=== PATIENT | female | born 1950 | race Caucasian/White ===

== ENCOUNTER 2017-08-30 20:48 | Inpatient (IN) | payer MEDICARE, OTHER ==
[~2017-08-30] VITALS: Ht 165.1 cm; Wt 108.9 kg
[2017-08-30] MEDS ORDERED: THIO50TA PO (20:51)
[2017-08-30] MEDS ORDERED: LORAZEPAM 2 MG/1 ML VIAL IM ONE (21:00)
[2017-08-30] MEDS ORDERED: diphenhydrAMINE 50 MG/1 ML VIAL IM ONE (21:00)
[2017-08-30] MEDS ORDERED: HALOPERIDOL LACTATE 5 MG/1 ML VIAL IM ONE (21:00)
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
[2017-08-30] MEDS ORDERED: HALOPERIDOL LACTATE 5 MG/1 ML VIAL ONE (21:10)
[2017-08-30] MEDS ORDERED: LORAZEPAM 2 MG/1 ML VIAL ONE (21:10)
[2017-08-30] MEDS ORDERED: diphenhydrAMINE 50 MG/1 ML VIAL ONE (21:10)
--- NOTE | 2017-08-30 21:10 | NUR ---
Patient is Medically Cleared per ERMD.
--- NOTE | 2017-08-30 21:30 | NUR ---
Patient to remain in ER at this time, unable to receive bed assignment from GPS. Nursing Soap Slabber notified.
--- NOTE | 2017-08-30 22:01 | NUR ---
Patient to remain in ER at this time, unable to receive bed assignment from GPS. Nursing Automation Operator notified.
--- NOTE | 2017-08-30 22:36 | NUR ---
Patient to remain in ER at this time, unable to receive bed assignment from GPS. Nursing Museum Docent notified. Patient remains agitated but cooperative, placed in Aylin-Chair with table to eat food which she requested, no signs of distress noted.
--- NOTE | 2017-08-30 22:56 | NUR ---
Pt. admitted to GPS, under care of Dr. Hoskins Belongs List completed
[2017-08-30] MEDS ORDERED: CLONAZEPAM 0.5 MG TABLET PO SCH (23:30)
[2017-08-30] MEDS ORDERED: MAG HYDROX/AL HYDROX/SIMETH 30 ML LIQUID UDC PO PRN (23:30)
[2017-08-30] MEDS ORDERED: MAGNESIUM HYDROXIDE 30 ML LIQUID UDC PO PRN (23:30)
--- NOTE | 2017-08-30 23:45 | NUR ---
AT APPROX 2315, ADMITTED 76 YEAR OLD FEMALE TO [facility] ON A 5150 FOR GD. PATIENT WAS TRANSPORTED VIA [facility] CHAIR. PER HOLD, SON HAVE NOT HEARD FROM HER IN A WEEK. HE WENT TO HER HOUSE AND FOUND HER SCREAMING. THE PATIENT COULD NOT OPEN THE DOOR FOR HER SON AND THE POLICE WERE CALLED. PATIENT WAS TAKEN TO [facility] ER FOR A PSYCH EVALUATION ON 08/28/17. PATIENT WAS CLEARED AND PUT ON HOLD AT THIS HOSPITAL. HOLD STARTED ON 08/28/17 AT 1115 AND WILL END ON 08/31/17 AT 1115. PATIENT WAS GIVEN BENADRYL 50MG IM, ATIVAN 2MG IM AND HALDOL 5MG IM AT [facility] ER AT APPROX 2100. PATIENT WAS UNABLE TO SIGN THE ADMISSION PAPERS OF PROVIDE ANY HISTORY DUE TO PT IS CONFUSED. PATIENT WAS PUT IN HER BED AND SHE IS NOW ASLEEP. WILL CONTINUE TO MONITOR.
[2017-08-31 02:43] VITALS: BP 144/99
--- NOTE | 2017-08-31 06:49 | NUR ---
PATIENT SLEPT FOR APPROX 6.15 HRS THROUGH THE NIGHT. REFUSED BLOOD DRAWN THIS AM. WILL CONTINUE TO MONITOR.
[2017-08-31 07:30] VITALS: BP 152/91
[2017-08-31 08:30] LABS: THYROID STIMULATING HORMONE 4.999 mIU/mL (0.358-3.740)
[2017-08-31] MEDS: QUETIAPINE FUMARATE 25 MG TABLET PO SCH ×2 (16:17→21:10)
[2017-08-31 16:33] VITALS: BP 110/76
--- NOTE | 2017-08-31 16:41 | NUR ---
GPS: Nursing Notes: Thought Disorder: patient is awake and responding to her name, impaired judgment, disoriented, responding to internal stimuli by talking and mumbling to self, episodes of shouting and screaming in the TV room, disruptive by screaming while other patients are watching the TV, redirected and reoriented, but continue to be talking and mumbling to self, unable to formulate a plan for self care, unkempt appearance, resistant with nursing care, ambulatory with FWW, continue with treatment plan.
--- NOTE | 2017-08-31 22:00 | NUR ---
received to care, yelling and screaming and running in the hallway, uttering racial slurs, difficult to redirect. pt was given her routine dose of seroquel, and she calmed down, slightly, sitting in the chris chair, in the hallway. as of 2199, she remains agitated, talking intermittently. will continue to monitor closely.
[2017-08-31] MEDS: TEMAZEPAM 7.5 MG CAPSULE PO PRN (22:45)
--- NOTE | 2017-08-31 22:45 | NUR ---
remains agitated and restless. talking to self. PRN restoril given for insomnia.
--- NOTE | 2017-08-31 23:50 | NUR ---
remains restless. PRN klonopin was given, for anxiety.
--- NOTE | 2017-09-01 00:30 | NUR ---
assisted to bed at 0015. as of 0030, she appears to be asleep. no distress noted.
--- NOTE | 2017-09-01 06:00 | NUR ---
slept 5.5 hours. assisted with AM care, and shower. is calm and cooperative. will continue to monitor closely.
[2017-09-01 07:30] VITALS: BP 136/83
[2017-09-01] MEDS: CLONAZEPAM 0.5 MG TABLET PO PRN (07:35)
[2017-09-01] MEDS: QUETIAPINE FUMARATE 25 MG TABLET PO SCH ×2 (08:11→16:21)
--- NOTE | 2017-09-01 16:23 | NUR ---
GPS: Nursing Notes: Thought Disorder: Patient is awake and responding to her name, impaired judgment, episodes of talking incoherently, responding to internal stimuli by talking and mumbling to unseen things, when asked who she is talking to, stated "I don't know... I guess... I am talking to Cinthia..", disorganized, resistant with nursing care, redirected and reoriented during shift, unable to formulate a plan for self care, continue with treatment plan.
[2017-09-01 16:59] VITALS: BP 114/69
[2017-09-01] MEDS: TEMAZEPAM 7.5 MG CAPSULE PO PRN (21:53)
[2017-09-02 07:30] VITALS: BP 114/74
[2017-09-02 07:31] LABS: BASOPHILS % (AUTO) 0.7 % (0.0-2.0); EOSINOPHILS # (AUTO) 0.2 K/uL (0.0-0.7); HEMATOCRIT 36.4 % (37-47); HEMOGLOBIN 12.6 G/DL (12.0-16.0); LYMPHOCYTES # (AUTO) 2.1 K/UL (0.8-4.8); LYMPHOCYTES % (AUTO) 34.4 % (20.5-51.5); MEAN CORPUSCULAR HEMOGLOBIN 33.3 UUG (27.0-31.0); MEAN CORPUSCULAR HGB CONC 35 g/dL (32.0-37.0); MEAN CORPUSCULAR VOLUME 96.3 FL (81.0-99.0); MONOCYTES # (AUTO) 0.4 K/UL (0.1-1.30); NEUTROPHILS # (AUTO) 3.3 K/UL (1.8-8.9); NEUTROPHILS % (AUTO) 54.9 % (38.5-71.5); PLATELET COUNT (AUTO) 98 K/UL (150-450); RED BLOOD CELL COUNT(AUTO) 3.78 MIL/UL (4.2-5.4)
[2017-09-02 07:56] LABS: BILIRUBIN,TOTAL 0.4 mg/dL (0.2-1.0); PHOSPHOROUS 3.7 mg/dL (2.5-4.9); POTASSIUM 4.4 mmol/L (3.5-5.1); TOTAL PROTEIN, SERUM 6.6 g/dL (6.4-8.2)
[2017-09-02 08:59] LABS: THYROID STIMULATING HORMONE 3.267 mIU/mL (0.358-3.740)
[2017-09-02] MEDS: CLONAZEPAM 0.5 MG TABLET PO PRN ×2 (09:51→13:53)
--- NOTE | 2017-09-02 09:55 | NUR ---
PATIENT BECAME AGITATED IN DAY ROOM FOR NO REASON AND BEGAN SCREAMING , CURSING AND TOUCH RECREATION THERAPY SHE PUSHED HER PER STAFFPT REFUSED TO SIT IN [place] CHAIR SECURITY CALLED AND PT FINALLY GOT INTO CHAIR WITH 2 PEOPLE ASSIST AND TOOK AM MEDS PLUS KLONOPIN.5 MG STILL RESPONDING TO INTERNAL STIMULI LESS ABUSIVE CONTINUE TO MONITOR PT S MOOD AND SAFETY.
[2017-09-02] MEDS: QUETIAPINE FUMARATE 25 MG TABLET PO SCH (09:56)
[2017-09-02 11:27] LABS: BAND % (MANUAL) 2 % (0-10); EOSINOPHILS % (MANUAL) 2 % (0-8); LYMPHOCYTES % (MANUAL) 38 % (20-40); MONOCYTES % (MANUAL) 7 % (2-10); NEUTROPHILS % (MANUAL) 51 % (42-75)
[2017-09-02] MEDS ORDERED: diphenhydrAMINE 50 MG/1 ML VIAL IM ONE (14:45)
[2017-09-02] MEDS ORDERED: LORAZEPAM 2 MG/1 ML VIAL IM ONE (14:45)
[2017-09-02] MEDS ORDERED: HALOPERIDOL LACTATE 5 MG/1 ML VIAL IM ONE (14:45)
[2017-09-02 15:07] VITALS: BP 102/63
--- NOTE | 2017-09-02 16:33 | NUR ---
Initial Discharge Instructions: Pt resides in [address] alone [[address] [place] [address]]. Spoke with pt's son, Antione Macias who would like pt to return home, but is open to SNF placement if necessary. SW will speak with pt,family,and MD regarding appropriate discharge plans. SW will form a safe and proper discharge.
[2017-09-02] MEDS ORDERED: QUETIAPINE FUMARATE 25 MG TABLET PO SCH (17:00)
[2017-09-02] MEDS: QUETIAPINE FUMARATE 100 MG TABLET PO SCH (17:00)
[2017-09-02 20:36] VITALS: BP 114/84
--- NOTE | 2017-09-03 06:53 | NUR ---
PATIENT SLEPT FOR APPROX 9.30 HRS THROUGH THE NIGHT. HE WOKE UP AT APPROX 0300 AND REQUESTED SOMETHING TO DRINK THEN SHE WENT BACK TO BED. SHE HAD A SHOWER THIS MORNING.
[2017-09-03 07:30] VITALS: BP 128/88
[2017-09-03] MEDS: QUETIAPINE FUMARATE 100 MG TABLET PO SCH (09:17)
[2017-09-03] MEDS: CLONAZEPAM 0.5 MG TABLET PO PRN (13:50)
[2017-09-03 16:08] VITALS: BP 110/57
[2017-09-03] MEDS: QUETIAPINE FUMARATE 200 MG TABLET PO SCH (16:35)
[2017-09-03] MEDS ORDERED: QUETIAPINE FUMARATE 100 MG TABLET PO SCH (17:00)
[2017-09-03 20:33] VITALS: BP 117/86
[2017-09-04 07:30] VITALS: BP 106/66
[2017-09-04] MEDS: QUETIAPINE FUMARATE 200 MG TABLET PO SCH ×2 (09:08→16:37)
--- NOTE | 2017-09-04 09:50 | NUR ---
PT RECEIVED AWAKE AOX2. PT SPEECH IS LESS RAPID, REMAINS WITH FLIGHT OF IDEAS. PT REFUSED AM MEDICATION AT FIRST BUT LATER WAS COMPLIANT WITH SEROQUEL. APPETITE GOOD. NO ACUTE DISTRESS NOTED.
[2017-09-04] MEDS: CLONAZEPAM 0.5 MG TABLET PO PRN (13:19)
--- NOTE | 2017-09-04 13:20 | NUR ---
PT OBSERVED INTRUSIVE AND LABILE, ALSO HYPER AGITATED AND FIXATED ON STAFF, PT REQUIRED REDIRECTION. GIVEN KLONOPIN PRN ORDERED.
--- NOTE | 2017-09-04 16:44 | NUR ---
IN DAY ROOM WATCHING TV. PT IS LESS AGITATED AT THIS TIME, BUT REMAINS LABILE AND TIMES. OTHERWISE NO AGGRESSIVE OR COMBATIVE BEHAVIOR NOTED.
[2017-09-04 20:19] VITALS: BP 107/78
[2017-09-05 07:30] VITALS: BP 131/80
[2017-09-05 08:22] LABS: BASOPHILS % (AUTO) 0.7 % (0.0-2.0); EOSINOPHILS # (AUTO) 0.3 K/uL (0.0-0.7); EOSINOPHILS % (AUTO) 5.8 % (0.0-7.0); HEMATOCRIT 37.2 % (31.2-41.9); HEMOGLOBIN 12.6 g/dL (10.9-14.3); LYMPHOCYTES # (AUTO) 1.5 K/uL (20.0-40.0); LYMPHOCYTES % (AUTO) 31.8 % (20.5-51.5); MEAN CORPUSCULAR HEMOGLOBIN 32.9 uug (24.7-32.8); MEAN CORPUSCULAR HGB CONC 34 g/dL (32.3-35.6); MONOCYTES # (AUTO) 0.4 K/uL (2.0-10.0); MONOCYTES % (AUTO) 7.7 % (0.0-11.0); NEUTROPHILS # (AUTO) 2.6 K/uL (1.8-8.9); PLATELET COUNT (AUTO) 96 K/uL (179-408); RED BLOOD CELL COUNT(AUTO) 3.83 MIL/uL (3.63-4.92); WHITE BLOOD COUNT (AUTO) 4.8 K/uL (3.8-11.8)
[2017-09-05 08:35] LABS: BILIRUBIN,TOTAL 0.4 mg/dL (0.2-1.0); CREATININE 0.9 mg/dL (0.6-1.3); MAGNESIUM 1.9 mg/dL (1.8-2.4); PHOSPHOROUS 3.6 mg/dL (2.5-4.9); POTASSIUM 4.2 mmol/L (3.5-5.1); TOTAL PROTEIN, SERUM 6.5 g/dL (6.4-8.2)
[2017-09-05 09:26] LABS: EOSINOPHILS % (MANUAL) 2 % (0-8); LYMPHOCYTES % (MANUAL) 30 % (20-40); MONOCYTES % (MANUAL) 4 % (2-10); NEUTROPHILS % (MANUAL) 64 % (42-75)
[2017-09-05] MEDS: QUETIAPINE FUMARATE 200 MG TABLET PO SCH ×2 (09:34→18:08)
[2017-09-05] MEDS: CLONAZEPAM 0.5 MG TABLET PO PRN (09:34)
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
[2017-09-05 21:00] VITALS: BP 120/80
[2017-09-06 07:30] VITALS: BP 114/63
[2017-09-06] MEDS: QUETIAPINE FUMARATE 200 MG TABLET PO SCH ×2 (08:16→16:49)
[2017-09-06 15:26] VITALS: BP 97/77
[2017-09-06 20:08] VITALS: BP 115/84
--- NOTE | 2017-09-07 06:43 | NUR ---
GPS: REMAIN UNCOOPERATIVE WITH CARE. CONFUSED TALKING TO HER SELF.LIKE TO SIT IN HALLWAY. SLEPT 6 HRS THROUGH THE NIGHT. NO PRN GIVEN. CONTINUE PLAN OF CARE.
[2017-09-07 07:30] VITALS: BP 101/68
[2017-09-07] MEDS: QUETIAPINE FUMARATE 200 MG TABLET PO SCH ×2 (08:23→16:18)
--- NOTE | 2017-09-07 09:57 | NUR ---
GPS: Nursing Notes: Thought Disorder: Patient is awake and responding to her name, responding to internal stimuli by talking and mumbling to herself, episodes of shouting incoherently, verbal abusive toward roommate, stating the "N..." word to her [place] roommate several times, "This is a democracy... We need to stay together....", "You are taking over..", shouting at charge nurse, impaired judgment, redirected and reoriented during shift, because of her racial statements, staff moved her roommate to another room, patient is unable to formulate a plan for self care, internally preoccupied, continue with treatment plan.
[2017-09-07 15:31] VITALS: BP 119/63
[2017-09-07 20:00] VITALS: BP 120/64
[2017-09-07] MEDS: ACETAMINOPHEN 325 MG TABLET PO PRN (23:10)
--- NOTE | 2017-09-08 00:10 | NUR ---
Pt c/o 7/10 pounding headache. Tylenol 650mg administered with good effect.
[2017-09-08 07:30] VITALS: BP 113/62
[2017-09-08] MEDS: QUETIAPINE FUMARATE 200 MG TABLET PO SCH ×2 (08:06→16:50)
[2017-09-08] MEDS: ACETAMINOPHEN 325 MG TABLET PO PRN (11:03)
[2017-09-08 16:53] VITALS: BP 116/73
[2017-09-08 20:15] VITALS: BP 122/64
[2017-09-09] MEDS: ACETAMINOPHEN 325 MG TABLET PO PRN (02:10)
--- NOTE | 2017-09-09 02:25 | NUR ---
RECEIVED PATIENT IN THE DAY ROOM WATCHING TV. SHE WAS CALM AND COOPERATIVE. A/O X 3. AT APPROX O215 PATIENT COMPLIANT OF A HEADACHE. TYLENOL 650MG PO PRN FOR PAIN WAS GIVEN. WILL MONITOR.
--- NOTE | 2017-09-09 03:38 | NUR ---
TYLENOL 650MG PO PRN FOR HEADACHES WAS EFFECTIVE. PT IS IN HER BED RESTING COMFORTABLE.
[2017-09-09 08:04] VITALS: BP 114/84
[2017-09-09] MEDS: QUETIAPINE FUMARATE 200 MG TABLET PO SCH ×2 (10:21→17:00)
[2017-09-09 15:52] VITALS: BP 136/95
--- NOTE | 2017-09-09 17:00 | NUR ---
PATIENT WITHDRAWN AND SECLUSIVE TO HER ROOM, DISORGANIZED IN THOUGHT PROCESS, RESPONDING HEAVILY TO INTERNAL STIMULI, TALKING LOUD TO UNSEEN OTHERS, YELLING IN THE HALLWAY, REFUSED PM MEDICATION, ATE 100% OF EACH MEALS. WILL CONTINUE TO MONITOR FOR SAFETY AND NEEDS.
[2017-09-09 20:30] VITALS: BP 132/88
--- NOTE | 2017-09-09 22:40 | NUR ---
PATIENT PRESENTS IN HER ROOM WITH VISUAL AND AUDITORY HALLUCINATIONS E/B TALKING AND ARGUING AT THE WALL IN HER ROOM. FLIGHT OF IDEAS. CLONAZEPAM 0.5MG PO PRN WAS OFFERED; HOWEVER, PT REFUSED. PATIENT WAS REDIRECTED. WILL CONTINUE TO MONITOR.
[2017-09-10 07:30] VITALS: BP 127/78
[2017-09-10] MEDS: ACETAMINOPHEN 325 MG TABLET PO PRN (09:12)
[2017-09-10] MEDS: QUETIAPINE FUMARATE 200 MG TABLET PO SCH ×2 (09:22→20:16)
[2017-09-10 15:00] VITALS: BP 116/69
[2017-09-10 20:00] LABS: *BILIRUBIN,URIN NEGATIVE (NEGATIVE); *BLOOD, URINE Trace-intact (NEGATIVE); *CLARITY,URINE CLOUDY (CLEAR); *COLOR,URINE YELLOW (YELLOW); *KETONES,URINE NEGATIVE (NEGATIVE); *PROTEIN,URINE NEGATIVE (NEGATIVE); *UROBILINOGEN,URINE 0.2 E.U./dl (NORMAL); LEUKOCYTE ESTERASE ,URINE 2+ (NEGATIVE); NITRITE, URINE POSITIVE (NEGATIVE); UGLUCOSE NEGATIVE (NEGATIVE)
[2017-09-10 20:53] VITALS: BP 120/64
[2017-09-10 20:55] LABS: BACTERIA,URINE MANY /HPF (NONE SEEN); MUCUS,URINE MODERATE /LPF (0-FEW); SQUAMOUS EPITHELIAL CELL,UR MODERATE /HPF (NONE SEEN); WBC,URINE 80-100 /HPF (0-3)
[2017-09-11 07:02] LABS: BASOPHILS % (AUTO) 0.8 % (0.0-2.0); EOSINOPHILS # (AUTO) 0.2 K/uL (0.0-0.7); EOSINOPHILS % (AUTO) 3.9 % (0.0-7.0); HEMATOCRIT 35.3 % (31.2-41.9); HEMOGLOBIN 11.9 g/dL (10.9-14.3); LYMPHOCYTES # (AUTO) 1.6 K/uL (20.0-40.0); LYMPHOCYTES % (AUTO) 31.9 % (20.5-51.5); MEAN CORPUSCULAR HEMOGLOBIN 33.1 uug (24.7-32.8); MEAN CORPUSCULAR HGB CONC 34 g/dL (32.3-35.6); MEAN CORPUSCULAR VOLUME 98.3 fL (75.5-95.3); MONOCYTES # (AUTO) 0.3 K/uL (2.0-10.0); MONOCYTES % (AUTO) 6.4 % (0.0-11.0); NEUTROPHILS # (AUTO) 2.9 K/uL (1.8-8.9); PLATELET COUNT (AUTO) 115 K/uL (179-408); WHITE BLOOD COUNT (AUTO) 5.1 K/uL (3.8-11.8)
[2017-09-11 07:16] LABS: BILIRUBIN,TOTAL 0.3 mg/dL (0.2-1.0); CREATININE 0.8 mg/dL (0.6-1.3); MAGNESIUM 1.8 mg/dL (1.8-2.4); PHOSPHOROUS 3.3 mg/dL (2.5-4.9); POTASSIUM 3.5 mmol/L (3.5-5.1); TOTAL PROTEIN, SERUM 6.5 g/dL (6.4-8.2)
[2017-09-11 07:30] VITALS: BP 128/86
[2017-09-11] MEDS: QUETIAPINE FUMARATE 200 MG TABLET PO SCH ×2 (08:55→20:02)
[2017-09-11] MEDS: ACETAMINOPHEN 325 MG TABLET PO PRN ×2 (09:02→15:34)
[2017-09-11] MEDS: SULFAMETH/TRIMETH 800/160 MG TABLET PO SCH ×2 (10:46→20:02)
--- NOTE | 2017-09-11 15:18 | NUR ---
Thursday DC Note: Patient will be discharged to [facility] [[address], [place] [address]; ] via private transportation at 12:00pm. Spoke with Chantal at the facility who states they will provide transportation and are ready to accept patient. Spoke with patient's son, Antione Macias ([phone]) and patient's sister, Shannon Ellis ([phone]) who are both aware and agreeable with discharge plans. Patient is aware and agreeable with discharge plans. Patient will follow-up at the facility with Dr. Reece (Director Of Pediatric Rehabilitation) and Dr. Hawkins (Psychiatrist).
[2017-09-11 15:26] VITALS: BP 138/81
[2017-09-11 20:08] VITALS: BP 126/83
--- NOTE | 2017-09-12 06:54 | NUR ---
GPS: REMAIN CALM AND COOPERATIVE. SLEPT 8 HRS THROUGH THE NIGHT. PLESANT UPON APPROACH. NO AGITATION NOTED.CONTINUE PLAN OF CARE.
[2017-09-12 07:30] VITALS: BP 124/63
[2017-09-12] MEDS: QUETIAPINE FUMARATE 200 MG TABLET PO SCH ×2 (08:32→20:12)
[2017-09-12] MEDS: SULFAMETH/TRIMETH 800/160 MG TABLET PO SCH ×2 (08:37→20:16)
--- NOTE | 2017-09-12 08:38 | NUR ---
PT REFUSED BACTRIM. EXPLAINED RISK AND BENEFITS, OFFERED X3, PT STRONGLY REFUSED MED. STATED "NO I AM NOT TAKING IT, I HAVE BEEN REFUSING IT AND MY DR DID NOT ORDER IT". EDUCATED PT ABOUT MEDICATION, PT STILL REFUSED.
--- NOTE | 2017-09-12 10:28 | NUR ---
CALLED [facility] AND SPOKE TO VARIETY PERFORMER OWEN. STATED THEY WILL ACCEPT PT ON THURSDAY.
[2017-09-12 16:45] VITALS: BP 125/81
[2017-09-12 20:38] VITALS: BP 124/77
[2017-09-13] MEDS: ACETAMINOPHEN 325 MG TABLET PO PRN (06:03)
--- NOTE | 2017-09-13 06:06 | NUR ---
GPS: PATIENT C/O HEADACHE 4/10 PAIN. TYLENOL 650 MG PO GIVEN.
--- NOTE | 2017-09-13 06:20 | NUR ---
GPS: REMAIN CALM AND COOPERATIVE WITH MEDICATION AND CARE. SLEPT 06:30 HRS THROUGH THE NIGHT. NO AGITATION NOTED THIS TIME. CONTINUE PLAN OF CARE.CONTINUE PLAN OF CARE.
[2017-09-13 07:30] VITALS: BP 135/87
[2017-09-13] MEDS: SULFAMETH/TRIMETH 800/160 MG TABLET PO SCH ×2 (08:46→20:11)
[2017-09-13] MEDS: QUETIAPINE FUMARATE 200 MG TABLET PO SCH ×2 (08:46→20:11)
[2017-09-13 16:40] VITALS: BP 146/97
[2017-09-13 20:19] VITALS: BP 135/88
--- NOTE | 2017-09-13 20:42 | NUR ---
PATIENT RECEIVED IN ACTIVIES ROOM INTERACTING WITH PEERS AND STAFF. PATIENT CALM AND COOPERATIVE ABLE TO MAKE NEEDS KNOWN. NO AGGRESSIVE OR COMBATIVE BEHAVIOR NOTED WILL CONTINUE TO MONITOR AND REDIRECT NEEDED. PATIENT COMPLAINT WITH MEDICATION. NO BEHAVIORAL ISSUES NOTED WILL CONTINUE TO MONITOR AND REDIRECT NEEDED.
[2017-09-14 07:30] VITALS: BP 125/66
[2017-09-14] MEDS: QUETIAPINE FUMARATE 200 MG TABLET PO SCH (08:40)
[2017-09-14] MEDS: SULFAMETH/TRIMETH 800/160 MG TABLET PO SCH (08:40)
[2017-09-14] MEDS: ACETAMINOPHEN 325 MG TABLET PO PRN (08:40)
--- NOTE | 2017-09-14 08:47 | NUR ---
Updated DC Note: Patient will be discharged to [facility] [[address], [place] [address]; ] via private transportation today at 12:00pm. Spoke with Chantal at the facility who states they will provide transportation and are ready to accept patient. Spoke with patient's son, Antione Macias ([phone]) and patient's sister, Shannon Ellis ([phone]) who are both aware and agreeable with discharge plans. Patient is aware and agreeable with discharge plans. Patient will follow-up at the facility with Dr. Reece (Business Dean) and Dr. Hawkins (Psychiatrist)
--- NOTE | 2017-09-14 13:13 | NUR ---
GPS: Nursing Notes: Discharge Notes: Patient is awake and responding to her name, cooperative with nursing care and compliant with her medications, denies any SI/HI, denies any AH/VH, denies any pain or discomfort, denies any SOB, discharge to [facility] at [address], [place] [address] , report given to nurse Anette FOREMAN, picked by facility's concrete mixing truck driver, Carol, took all her belongings with her, patient's son, Antione Macias and sister, Shannon Ellis were notify by S.W., Dr. Hawkins (psychiatrist) and Dr. Reece (genetic engineer) will continue with aftercare at the facility.
== END 2017-09-14 13:15 | DRG 885 ==
LOC: ER 20:49 → GPS 23:02
PROVIDERS: ADMIT Psychiatry & Neurology Psychiatry; ATTEND Nurse Practitioner Acute Care
DX: F23 Brief psychotic disorder (principal); D69.6 Thrombocytopenia, unspecified; N39.0 Urinary tract infection, site not specified; Z91.14 Patient's other noncompliance with medication regimen; F31.9 Bipolar disorder, unspecified; E02 Subclinical iodine-deficiency hypothyroidism; F41.9 Anxiety disorder, unspecified; Z91.81 History of falling; E66.01 Morbid (severe) obesity due to excess calories; Z68.39 Body mass index [BMI] 39.0-39.9, adult; Z71.3 Dietary counseling and surveillance; B96.20 Unspecified Escherichia coli [E. coli] as the cause of diseases classified elsewhere; R73.9 Hyperglycemia, unspecified; G31.84 Mild cognitive impairment of uncertain or unknown etiology
CPT/HCPCS: 36415; 83735; 84100; 84443; 85025; 87077; 87086; A4663; J1200; J1630; J2060

== ENCOUNTER 2018-01-19 23:46 | Inpatient (IN) | payer MEDICARE, OTHER ==
[~2018-01-19] VITALS: Ht 165.1 cm; Wt 113.9 kg
--- NOTE | 2018-01-20 00:15 | NUR ---
Unable to complete med rec. A home medication list was not provided by previous facility, they were unable to obtain list. When asked pt will not answer or will answer incorrectly such as " they are here" MD vargas
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
[2018-01-20] MEDS ORDERED: MAGNESIUM HYDROXIDE 30 ML LIQUID UDC PO PRN (02:45)
[2018-01-20] MEDS ORDERED: MAG HYDROX/AL HYDROX/SIMETH 30 ML LIQUID UDC PO PRN (02:45)
[2018-01-20] MEDS ORDERED: TEMAZEPAM 7.5 MG CAPSULE PO PRN (02:45)
[2018-01-20 03:06] VITALS: BP 102/71
[2018-01-20 09:09] VITALS: BP 106/82
[2018-01-20] MEDS: OLANZAPINE ZYDIS 5 MG TAB.RAPDIS PO SCH (12:57)
[2018-01-20] MEDS: DIVALPROEX SPRINKLE 125 MG CAP.SPRINK PO SCH ×3 (12:57→17:46)
[2018-01-20 16:17] VITALS: BP 107/73
--- NOTE | 2018-01-20 22:00 | NUR ---
received to care, sitting in the activity room with peers, pleasant upon approach, with minimal disclosure, guarded in her responses, and appearing distracted by internal stimuli. no scheduled meds were due, and she refused all PRN medications. as of 0, she appears to be asleep, in her bed. no distress noted. will continue to monitor closely.
[2018-01-21 07:30] VITALS: BP 128/66
[2018-01-21] MEDS: CLONAZEPAM 0.5 MG TABLET PO PRN (08:44)
[2018-01-21] MEDS: ACETAMINOPHEN 325 MG TABLET PO PRN ×2 (08:45→13:47)
[2018-01-21] MEDS: DIVALPROEX SPRINKLE 125 MG CAP.SPRINK PO SCH ×3 (09:00→17:00)
[2018-01-21] MEDS: OLANZAPINE ZYDIS 5 MG TAB.RAPDIS PO SCH (09:00)
[2018-01-21] MEDS ORDERED: LORAZEPAM 2 MG/1 ML VIAL IM ONE (17:00)
[2018-01-21] MEDS ORDERED: HALOPERIDOL LACTATE 5 MG/1 ML VIAL IM ONE (17:00)
[2018-01-21] MEDS ORDERED: diphenhydrAMINE 50 MG/1 ML VIAL IM ONE (17:00)
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
--- NOTE | 2018-01-21 18:01 | NUR ---
Gps/Patient Accounting Representative- patient refusing routine pm meds. claimed she just have IM mediciations she does not want to be dope up. Reviewed meds. with patient still refusing, calmer at this time, eating dinner in her room.
[2018-01-21 20:00] VITALS: BP 129/89
--- NOTE | 2018-01-21 22:00 | NUR ---
received to care, sitting in the activity room. remains suspicious and isolative. no meds scheduled for bedtime, and she declined PRN medications. went to bed at 0. as of 2199, she appears to be asleep. no distress noted. will continue to monitor closely.
--- NOTE | 2018-01-21 22:30 | NUR ---
pt is attempting to ambulate around her room, with an unsteady gait. assisted to the chris chair, and placed at nurses station, for safety.
--- NOTE | 2018-01-21 23:00 | NUR ---
appears to be asleep. no distress noted. will continue to monitor closely.
--- NOTE | 2018-01-22 01:30 | NUR ---
assisted to the bathroom, then back to bed.
--- NOTE | 2018-01-22 02:00 | NUR ---
appears to be asleep. no distress noted.
[2018-01-22 07:30] VITALS: BP 138/83
[2018-01-22] MEDS: DIVALPROEX SPRINKLE 125 MG CAP.SPRINK PO SCH ×3 (08:36→16:58)
[2018-01-22] MEDS: OLANZAPINE ZYDIS 5 MG TAB.RAPDIS PO SCH (08:36)
--- NOTE | 2018-01-22 11:12 | NUR ---
Initial DC Plan: Patient currently lives home alone [[address] [place] [address]] and states she would like to return there upon discharge. SW will follow up with MD, patient, and patient's son Antione and sister Shannon [[phone]] to discuss most appropriate discharge plans. SW will form a safe and proper discharge.
--- NOTE | 2018-01-22 12:27 | NUR ---
Firearms Reporting: NAIMA submitted Mental Health Report to [facility] on 01/22.
[2018-01-22 16:00] VITALS: BP 122/79
--- NOTE | 2018-01-22 17:40 | NUR ---
Gps/Refrigeration Operator- Had been staying in the activity room watching TV, hesitancy in taking routine medications, needed prompting from time to time.
[2018-01-22 21:11] VITALS: BP 117/67
--- NOTE | 2018-01-22 22:00 | NUR ---
received to care, sitting in the hallway, pleasant upon approach. no interactions noted with peers. no meds scheduled for bedtime, and she declined PRN medications. as of 2200, she remains awake, in the hallway. no distress noted. will continue to monitor closely.
--- NOTE | 2018-01-22 22:51 | NUR ---
Patient stayed in the hallways, had some snacks after reporting to have freshened up. Manifested a pleasant disposition.
--- NOTE | 2018-01-22 23:30 | NUR ---
appears to be asleep. no distress noted. will continue to monitor closely.
[2018-01-23 07:30] VITALS: BP 138/72
[2018-01-23] MEDS: OLANZAPINE ZYDIS 5 MG TAB.RAPDIS PO SCH (08:37)
[2018-01-23] MEDS: DIVALPROEX SPRINKLE 125 MG CAP.SPRINK PO SCH ×3 (08:37→17:37)
[2018-01-23 20:00] VITALS: BP 123/62
[2018-01-24 07:30] VITALS: BP 125/68
[2018-01-24] MEDS: OLANZAPINE ZYDIS 5 MG TAB.RAPDIS PO SCH (08:38)
[2018-01-24] MEDS: DIVALPROEX SPRINKLE 125 MG CAP.SPRINK PO SCH ×3 (08:38→16:49)
[2018-01-24] MEDS: ACETAMINOPHEN 325 MG TABLET PO PRN ×2 (14:13→20:30)
[2018-01-24 15:44] VITALS: BP 109/85
--- NOTE | 2018-01-24 18:32 | NUR ---
Gps/Hospice/Home Health Aide- Constantly asking for food, even she just had dinner, claimed she 's still hungry. Had been compliant with her routine medications
[2018-01-24 19:39] VITALS: BP 126/69
[2018-01-24] MEDS: CLONAZEPAM 0.5 MG TABLET PO PRN (20:30)
--- NOTE | 2018-01-24 20:51 | NUR ---
Patient received in activities room watching t.v. and interacting with others. Patient easily agitated, easily irritable is redirectable. No aggressive or combative behavior noted will continue to monitor. Patient received Tylenol for headache 12/19, klonopin for anxiety. Patient has been complaint with medication. No screaming, or yelling noted will continue to monitor.
[2018-01-25 07:30] VITALS: BP 149/82
[2018-01-25] MEDS: OLANZAPINE ZYDIS 5 MG TAB.RAPDIS PO SCH (09:01)
[2018-01-25] MEDS: DIVALPROEX SPRINKLE 125 MG CAP.SPRINK PO SCH ×3 (09:01→17:28)
[2018-01-25 15:37] VITALS: BP 139/82
[2018-01-25 20:25] VITALS: BP 116/80
--- NOTE | 2018-01-25 20:25 | NUR ---
Patient received in [facility] room coloring and interacting with others. Patient easily agitated, easily irritable is redirectable. No aggressive or combative behavior noted will continue to monitor. Patient has been complaint with medication. No screaming, or yelling noted will continue to monitor.
[2018-01-26 07:30] VITALS: BP 156/82
[2018-01-26] MEDS: OLANZAPINE ZYDIS 5 MG TAB.RAPDIS PO SCH (08:26)
[2018-01-26] MEDS: DIVALPROEX SPRINKLE 125 MG CAP.SPRINK PO SCH ×3 (08:26→16:57)
[2018-01-26 15:10] VITALS: BP 122/88
[2018-01-26] MEDS: ACETAMINOPHEN 325 MG TABLET PO PRN (15:32)
[2018-01-26 19:44] VITALS: BP 113/71
[2018-01-27] MEDS: ACETAMINOPHEN 325 MG TABLET PO PRN (05:45)
[2018-01-27 07:30] VITALS: BP 93/63
[2018-01-27] MEDS: OLANZAPINE ZYDIS 5 MG TAB.RAPDIS PO SCH (08:18)
[2018-01-27] MEDS: DIVALPROEX SPRINKLE 125 MG CAP.SPRINK PO SCH ×3 (08:18→17:54)
[2018-01-27 09:04] LABS: BASOPHILS # (AUTO) 0.1 K/uL (0.0-8.0); BASOPHILS % (AUTO) 1.1 % (0.0-2.0); EOSINOPHILS # (AUTO) 0.2 K/uL (0.0-0.7); EOSINOPHILS % (AUTO) 4.8 % (0.0-7.0); HEMOGLOBIN 12.6 g/dL (10.9-14.3); LYMPHOCYTES # (AUTO) 1.6 K/uL (20.0-40.0); LYMPHOCYTES % (AUTO) 33.6 % (20.5-51.5); MEAN CORPUSCULAR HEMOGLOBIN 32.6 uug (24.7-32.8); MEAN CORPUSCULAR HGB CONC 33 g/dL (32.3-35.6); MEAN CORPUSCULAR VOLUME 98.2 fL (75.5-95.3); MONOCYTES # (AUTO) 0.3 K/uL (2.0-10.0); MONOCYTES % (AUTO) 5.4 % (0.0-11.0); NEUTROPHILS # (AUTO) 2.6 K/uL (1.8-8.9); NEUTROPHILS % (AUTO) 55.1 % (38.5-71.5); PLATELET COUNT (AUTO) 96 K/uL (179-408); RED BLOOD CELL COUNT(AUTO) 3.87 MIL/uL (3.63-4.92); WHITE BLOOD COUNT (AUTO) 4.7 K/uL (3.8-11.8)
[2018-01-27 09:05] LABS: CREATININE 0.8 mg/dL (0.6-1.3)
[2018-01-27 10:00] LABS: NEUTROPHILS % (MANUAL) 60 % (42-75)
[2018-01-27 10:01] LABS: BAND % (MANUAL) 0 % (0-10); EOSINOPHILS % (MANUAL) 1 % (0-8); LYMPHOCYTES % (MANUAL) 35 % (20-40); MONOCYTES % (MANUAL) 4 % (2-10)
[2018-01-27 16:20] VITALS: BP 120/67
--- NOTE | 2018-01-27 18:27 | NUR ---
RECEIVED Pt IN BED, SLEEPING, EASY TO AROUSE, A/O X 2. Pt IS COOPERATIVE, COMPLIANT WITH MEDS AND CARE STAFF, CALM AND PLEASANT, FLAT AFFECT, FAIR JUDGMENT, ABLE TO MAKE NEEDS KNOWN, AMBULATORY WITH FWW. NO BEHAVIORAL PROBLEMS NOTED THROUGHOUT THE SHIFT.
[2018-01-27 20:06] VITALS: BP 120/79
--- NOTE | 2018-01-27 22:20 | NUR ---
received to care, sitting in the activity room, watching tv, pleasant upon approach. no meds were scheduled for bedtime, and she declined PRN medications. she went to bed at 2139. as of 2219, she appears to be asleep. no distress noted. will continue to monitor closely.
[2018-01-28] MEDS: ACETAMINOPHEN 325 MG TABLET PO PRN ×2 (05:58→12:41)
--- NOTE | 2018-01-28 05:58 | NUR ---
slept 7 hours. is now awake. PRN tylenol was given at this time, for bilateral knee pain, 5/10, and she went back to bed. will continue to monitor closely.
--- NOTE | 2018-01-28 06:40 | NUR ---
appears to be asleep. no distress noted.
[2018-01-28 07:30] VITALS: BP 114/68
[2018-01-28] MEDS: OLANZAPINE ZYDIS 5 MG TAB.RAPDIS PO SCH (08:15)
[2018-01-28] MEDS: DIVALPROEX SPRINKLE 125 MG CAP.SPRINK PO SCH ×3 (08:15→17:51)
[2018-01-28 16:25] VITALS: BP 103/71
[2018-01-28 20:08] VITALS: BP 122/82
--- NOTE | 2018-01-28 23:00 | NUR ---
received to care, sitting in the activity room, watching tv, pleasant upon approach. no meds were scheduled for bedtime, and she declined PRN medications. interacting well with select male peer. as of 2229, she appears to be asleep. no distress noted. will continue to monitor closely.
[2018-01-29] MEDS: ACETAMINOPHEN 325 MG TABLET PO PRN (05:34)
--- NOTE | 2018-01-29 05:34 | NUR ---
pt is now awake. PRN tylenol was given at this time, for generalized pain, 8/10, and she went back to bed. will continue to monitor closely.
--- NOTE | 2018-01-29 06:00 | NUR ---
appears to be asleep. no distress noted.
[2018-01-29 07:30] VITALS: BP 121/82
--- NOTE | 2018-01-29 08:03 | NUR ---
DC Note: Patient will be discharged home [[address] [place] [place] [address]] via private transportation. NAIMA spoke with patient's nephew Patric [[phone]] who stated he will pear picker patient at 10:30am. Patient is alert and oriented x4 and agreeable to discharge plans. Patient's sister Shannon Ellis [[phone]] is aware and agreeable to discharge plans. Patient has an appointment with her psychiatrist Dr. Jhaveri [[address] [place] [address]; [phone]] on February 26 at 1pm. Patient plans to follow up with her manager land Dr. Rubi [[address] [place] [address]; ]. Patient has a case management appointment with [facility] through [facility] [[address] [place] [address]; [phone]]. Patient was also referred to [facility] [[phone]]. NAIMA also provided patient caregiving referrals including: [facility] [phone], as well as [facility] [ ].
[2018-01-29] MEDS: DIVALPROEX SPRINKLE 125 MG CAP.SPRINK PO SCH ×2 (09:08→13:00)
[2018-01-29] MEDS: OLANZAPINE ZYDIS 5 MG TAB.RAPDIS PO SCH (09:08)
[2018-01-29 17:42] VITALS: BP 121/82
== END 2018-01-29 10:45 | disposition home or self-care (01) | DRG 885 ==
LOC: ER 23:55 → GPS 01-20 01:20
PROVIDERS: ADMIT Psychiatry & Neurology Psychiatry; ATTEND Internal Medicine
DX: F23 Brief psychotic disorder (principal); D69.6 Thrombocytopenia, unspecified; E66.01 Morbid (severe) obesity due to excess calories; F03.90 Unspecified dementia, unspecified severity, without behavioral disturbance, psychotic disturbance, mood disturbance, and anxiety; Z68.41 Body mass index [BMI] 40.0-44.9, adult; F31.2 Bipolar disorder, current episode manic severe with psychotic features; Z71.3 Dietary counseling and surveillance; F41.9 Anxiety disorder, unspecified; R73.03 Prediabetes; Z91.81 History of falling; E78.5 Hyperlipidemia, unspecified
CPT/HCPCS: 36415; 80164; 85025; A4663; J1200; J1630; J2060